=== PATIENT | male | born 1980 | race Caucasian/White ===

== ENCOUNTER → 2019-05-19 | Emergency (ER) | payer OTHER, BC ==
[~2019-05-19] VITALS: Ht 177.8 cm; Wt 117.9 kg
[~2019-05-19] MED LIST: HYDROCHLOROTH12.5 M1 PO; HYDROCODON-ACE1 EAC7 PO; IBUPROFEN 800800 MG PO
[2019-05-19 08:36] VITALS: BP 137/91
== END ==
LOC: M.ERS 07:40
DX: S46.911A Strain of unspecified muscle, fascia and tendon at shoulder and upper arm level, right arm, initial encounter (principal); Z87.442 Personal history of urinary calculi; X50.3XXA Overexertion from repetitive movements, initial encounter; Y93.89 Activity, other specified; Y92.89 Other specified places as the place of occurrence of the external cause; Y99.8 Other external cause status